=== PATIENT | male | born 2000 | race Caucasian/White ===

== ENCOUNTER 2018-09-19 17:43 | Emergency (ER) | payer MEDICAID ==
[~2018-09-19] VITALS: Ht 180.3 cm; Wt 69.6 kg
[2018-09-19 17:57] VITALS: BP 128/67
[2018-09-19] MEDS ORDERED: ONDANSETRON 2MG/ML, 2ML IVPush ONE (18:00)
[2018-09-19] MEDS ORDERED: SODIUM CHLORIDE FLUSH 10ML SYR IVF ONE (18:00)
--- NOTE | 2018-09-19 18:01 | NUR ---
PT TO LOBBY STEADY GAIT
[2018-09-19 18:17] LABS: BASOPHILS # (AUTO) 0.02 x10^3/uL (0-0.3); BASOPHILS % (AUTO) 0 % (0-1); EOSINOPHILS % (AUTO) 0 % (1-7); LYMPHOCYTES # (AUTO) 0.83 x10^3/uL (1-6.1); LYMPHOCYTES % (AUTO) 6 % (22-44); MD NO; MEAN CORPUSCULAR HEMOGLOBIN 30.2 pg (27.5-34.5); MEAN CORPUSCULAR HGB CONC 33.9 g/dL (33.2-36.2); MEAN PLATELET VOLUME 9.8 fL (7.4-10.4); MONOCYTES # (AUTO) 0.46 x10^3/uL (0-1.4); MONOCYTES % (AUTO) 3 % (2-9); NEUTROPHILS # (AUTO) 13.33 x10^3/uL (1.8-8.0); NEUTROPHILS % (AUTO) 91 % (42-75); PLATELET COUNT 297 x10^3/uL (130-400); RED BLOOD COUNT 5.83 x10^6/uL (4.38-5.82); RED CELL DISTRIBUTION WIDTH 12.9 % (9.4-14.8)
[2018-09-19 18:25] LABS: ALANINE AMINOTRANSFERASE 57 U/L (12-78); ALBUMIN 4.8 g/dL (3.4-5.0); ANION GAP 7 mmol/L (5-15); CALCIUM 9.2 mg/dL (8.5-10.1); CHLORIDE 106 mmol/L (98-107); CREATININE 1.18 mg/dL (0.7-1.3)
[2018-09-19 18:29] LABS: ALKALINE PHOSPHATASE 111 U/L (45-117); BILIRUBIN,TOTAL 1.2 mg/dL (0.2-1.0); TOTAL PROTEIN 8.3 g/dL (6.4-8.2)
[2018-09-19] MEDS ORDERED: ONDANSETRON ODT 4 MG ONE (19:12)
--- NOTE | 2018-09-19 19:17 | NUR ---
PT C/O N/V, ABD PAIN AFTER DRINKING HEAVILY LAST NOC. PT DENIES N/V NOW AND PAIN IN THE ABDOMEN HAS RESOLVED. DR. OTOOLE ORDERED ZOFRAN ODT AND IT WAS GIVEN. WILL GIVE PO CHALLENGE IN 15 MINUTES.
[2018-09-19] MEDS ORDERED: ONDANSETRON ODT 4 MG PO ONE (19:30)
== END 2018-09-19 20:01 | disposition home or self-care (01) ==
LOC: ED 19:55
DX: R10.13 Epigastric pain (principal); R11.2 Nausea with vomiting, unspecified
CPT/HCPCS: 36415; 80053; 83690; 85025; 99283; Q0162